=== PATIENT | male | born 2005 | race Caucasian/White ===

== ENCOUNTER 2023-04-15 08:34 | Outpatient (CLI) | payer BC, SELFPAY | END 2023-04-15 08:35 | disposition home or self-care (01) | PROVIDERS: PCP Pediatrics; Referring Provider Pediatrics; Visit Provider Family Medicine | DX: Z13.1 Encounter for screening for diabetes mellitus (principal); Z13.6 Encounter for screening for cardiovascular disorders | CPT/HCPCS: 80061; 82947 ==